=== PATIENT | female | born 1960 | race Caucasian/White ===

== ENCOUNTER 2021-05-02 15:13 | Outpatient (CLI) | payer OTHER | END 2021-05-02 15:14 | disposition home or self-care (01) | LOC: CSHRAD 15:13 | PROVIDERS: ATTEND Family Medicine | DX: M25.562 Pain in left knee (principal) ==

== ENCOUNTER 2025-06-23 13:13 | Outpatient (CLI) | payer OTHER | END 2025-06-23 13:14 | disposition home or self-care (01) | LOC: CSHMAMMO 13:13 | PROVIDERS: ATTEND Family Medicine | DX: Z12.31 Encounter for screening mammogram for malignant neoplasm of breast (principal); Z80.3 Family history of malignant neoplasm of breast | CPT/HCPCS: 77063; 77067 ==

== ENCOUNTER 2025-07-08 10:24 | Emergency (ER) | payer OTHER ==
[2025-07-08 11:35] LABS: Actual Bicarbonate (HCO3v) 27.8 mEq/L (22-28); Analyzer IN Cardio CS ER; Base Excess 1.9 mEq/L (-2 - +2); Calcium, Ionized (venous) 1.13 mmol/L (1.16-1.32); Chloride (VBG) 100 mmol/L (98-106); Critical Notified By: Udy, RRT; Hematocrit-VBG 49 % (36.0-47.0); Hemoglobin (Hb) 16.6 g/dL (11.7-16.0); Potassium (VBG) 3.11 mmol/L (3.70-5.30); Puncture Site Other Site; RapidComm Collect By NUR.PA; Sodium 143 mmol/L (133-146)
[2025-07-08 11:47] LABS: #Basophils Less than 0.03 10x3/uL (0.0-0.2); #Eosinophils Less than 0.03 10x3/uL (0.0-0.5); #Monocytes 0.27 10x3/uL (0.0-1.1); #Neutrophils 6.12 10x3/uL (1.5-8.4); %Basophils 0.3 % (0.0-2.0); %Eosinophils 0.1 % (0.0-6.0); %Lymphocytes 11.7 % (18.0-47.0); %Monocytes 3.7 % (0.0-10.0); %Neutrophils 83.7 % (40.0-75.0); Hematocrit 45.6 % (34.9-44.5); Hemoglobin 15.3 g/dL (12.0-15.5); Mean Corpuscular Hemoglobin 29.5 pg (27.0-33.0); Mean Corpuscular Volume 88.0 fL (81.6-98.3); Platelet Count 271 10x3/uL (150-450); Red Blood Cell (RBC) Count 5.18 10x6/uL (3.90-5.03); White Blood Cell (WBC) Count 7.32 10x3/uL (3.5-10.5)
[2025-07-08 12:00] LABS: ALT (SGPT) 26 U/L (Less than 34); AST (SGOT) 26 U/L (11-34); Albumin 4.0 g/dL (3.1-4.5); Alkaline Phosphatase 64 U/L (40-110); Anion Gap 15 mmol/L (10-20); BUN (Urea Nitrogen) 9 mg/dL (9.8-20.1); Bilirubin, Total 0.5 mg/dL (0.3-1.2); Calc. Creatinine Clearance 0 mL/min (70-130); Calcium 9.1 mg/dL (7.8-10.44); Carbon Dioxide 25 mmol/L (23-31); Chloride 104 mmol/L (98-107); Globulin 2.8 g/dL (2.4-3.5); Glucose 177 mg/dL (80-115); Potassium 3.4 mmol/L (3.5-5.1); Sodium 141 mmol/L (136-145)
[2025-07-08 12:08] LABS: Troponin I Less than 0.010 ng/mL (< 0.028)
== END 2025-07-08 14:11 | disposition home or self-care (01) ==
LOC: CSHERS 10:24
DX: R05.3 Chronic cough (principal); R25.2 Cramp and spasm; R73.9 Hyperglycemia, unspecified; E87.6 Hypokalemia; K21.9 Gastro-esophageal reflux disease without esophagitis; I10 Essential (primary) hypertension
CPT/HCPCS: 36415; 71275; 80053; 82805; 83880; 84484; 85025; 93005